=== PATIENT | male | born 1935 | race Caucasian/White ===

== ENCOUNTER 2016-10-27 07:05 | Emergency (ER) | payer OTHER ==
[~2016-10-27] VITALS: Ht 172.7 cm; Wt 79.4 kg
[~2016-10-27 07:05] MED LIST: ASCO100T OR; ASPI81CH45 OR; ATEN100T OR; B-COCAP34 OR; GEMF600T3 OR; GLYB5TAB8 OR; LATA0.00 OP; METF500T OR; MORP5SUP OR; OMEGCAP9 OR; OXYC-589 OR; PRO AIR INH; TEMA15CA OR; TRIA25CA OR; VITAMIN D 3 OR
[2016-10-27] MEDS ORDERED: ACETAMINOPHEN 325 MG TAB PO ONE ×2 (07:09)
[2016-10-27 08:31] LABS: Basophils # (auto) 0 uL; Basophils % (auto) 0.3 % (0.0-2.0); Eosinophils # (auto) 0 uL; Eosinophils % (auto) 0.3 % (0.0-7.0); Hematocrit 37.5 % (41.0-53.0); Hemoglobin 12.4 g/dL (13.5-17.5); Lymphocytes # (auto) 0.9 uL; Lymphocytes % (auto) 8.2 % (10.0-50.0); Mean Corpuscular Hemoglobin 32.1 pg (28.0-32.0); Mean Corpuscular Volume 97.2 fL (80.0-100.0); Mean Platelet Volume 7.6 fL (7.4-10.4); Monocytes # (auto) 0.7 uL; Monocytes % (auto) 6.7 % (0.0-12.0); Neutrophils # (auto) 9.1 uL; Neutrophils % (auto) 84.5 % (37.0-80.0); Platelet Count (auto) 272 10^3/uL (140-450); Red Cell Distribution Width 13.5 % (11.6-16.0); White Blood Cell 10.7 10^3/uL (4.4-10.8)
[2016-10-27 08:43] LABS: Albumin 3.3 g/dL (3.4-5.0); Calcium 8.6 mg/dL (8.5-10.1); Magnesium 1.4 mg/dL (1.6-2.6); Potassium 4.2 mmol/L (3.5-5.1)
[2016-10-27 08:46] LABS: BUN/Creatinine Ratio 17.4
[2016-10-27 08:48] LABS: Bilirubin, Total 0.2 mg/dL (0.2-1.0); Total Protein 6.7 g/dL (6.4-8.2)
[2016-10-27] MEDS: MAGNESIUM SULFATE 1GM/100ML 100 ML IV SCH ×2 (11:03→12:51)
[2016-10-27 11:43] LABS: Urine Bilirubin Negative (Negative); Urine Blood Negative /uL (Negative); Urine Color Yellow (Yellow); Urine Glucose Normal (Normal); Urine Ketone Negative (Negative); Urine Nitrite Negative (Negative); Urine RBC 1 /hpf (0 - 3); Urine Urobilinogen Normal (Negative)
[2016-10-27 12:57] VITALS: BP 152/64
== END 2016-10-27 14:12 | disposition home or self-care (01) ==
LOC: ER 07:08
DX: R50.9 Fever, unspecified (principal); R53.1 Weakness; E44.1 Mild protein-calorie malnutrition; E83.42 Hypomagnesemia; I10 Essential (primary) hypertension; M19.90 Unspecified osteoarthritis, unspecified site; R07.9 Chest pain, unspecified; R10.9 Unspecified abdominal pain; Z79.82 Long term (current) use of aspirin; Z68.26 Body mass index [BMI] 26.0-26.9, adult; E11.22 Type 2 diabetes mellitus with diabetic chronic kidney disease; I12.9 Hypertensive chronic kidney disease with stage 1 through stage 4 chronic kidney disease, or unspecified chronic kidney disease; N18.9 Chronic kidney disease, unspecified
CPT/HCPCS: 36415; 71010; 80053; 81001; 83735; 84484; 85025; 93005; 94761; 96365; 96366; 99285; J3475